=== PATIENT | female | born 1990 | race Caucasian/White ===

== ENCOUNTER 2018-04-17 13:20 | Emergency (ER) | payer SELFPAY ==
[2018-04-17 13:54] LABS: URINE HCG POC HCG NEGATIVE (Negative)
[2018-04-17 14:06] LABS: BILIRUBIN,URINE SMALL (NEG); GLUCOSE,URINE NEGATIVE (NEG); NITRITE,URINE NEGATIVE (NEG); PROTEIN,URINE 100 mg/dL (NEG-TRACE)
[2018-04-17 14:12] LABS: CLARITY,URINE TURBID; COLOR,URINE RED; RBC,URINE TNTC /HPF (0-2)
[2018-04-17 14:13] LABS: BACTERIA,URINE 0 /HPF (0-FEW); HYALINE CASTS, URINE MODERATE /HPF; SQUAMOUS EPITHELIAL CELL,UR MOD /LPF
== END 2018-04-17 14:29 | disposition home or self-care (01) ==
LOC: ER 14:29
DX: N39.0 Urinary tract infection, site not specified (principal); Z88.0 Allergy status to penicillin
CPT/HCPCS: 81001; 81025; 87086; 99284